=== PATIENT | female | born 1985 | race Caucasian/White ===

== ENCOUNTER 2018-05-02 09:48 | Emergency (ER) | payer OTHER ==
[~2018-05-02] VITALS: Ht 160 cm; Wt 124.7 kg
[~2018-05-02 09:48] MED LIST: ADDERALL 10 MG10 MG PO; ADDERALL 30 MG30 MG PO; CLONAZEPAM 1 MG1 M1 PO; FLEXERIL PO; HYDROCODON-ACE1 EAC7 PO; LEXAPRO20 MG PO; MAXZIDE-25 MG1 EACH PO; MICROGESTIN1 EAC1 PO; NORCO 5-325 TA1 EACH PO; ONDANSETRON HCL4 M2 PO; PROMETHAZINE/C118 ML PO; TRAMADOL 50 MG50 MG PO; WELLBUTRIN XL300 MG PO
[2018-05-02 10:19] LABS: ABSOLUTE BASOPHILS 0.2 thou/uL (0.0-0.2); ABSOLUTE EOSINOPHILS 0.2 thou/uL (0.0-0.7); ABSOLUTE LYMPHOCYTES 3.6 thou/uL (0.8-5.3); ABSOLUTE MONOCYTES 0.6 thou/uL (0.0-1.2); ABSOLUTE NEUTROPHILS 7.7 thou/uL (1.6-8.1); BASOPHILS 1.5 %; EOSINOPHILS 1.4 %; HEMATOCRIT 38.2 % (37.0-47.0); HEMOGLOBIN 12.5 gm/dL (12.0-15.0); MCH 25.6 pg (26.0-34.0); MCHC 32.6 g/dL (28.0-37.0); MCV 78.7 fL (80.0-100.0); MONOCYTES 5.2 %; MPV 7.2 fl. (7.2-11.1); NUCLEATED RBCS 0 /100WBC; PLATELET COUNT* 492 thou/uL (150-400); POLYS 62.9 %; RBC 4.86 mil/uL (4.20-5.00); RDW-CV 15.3 % (10.5-14.5); WBC 12.3 thou/uL (4.0-11.0)
[2018-05-02 10:28] LABS: ANION GAP 8 mmol/L (7-16); BUN 10 mg/dL (7-18); CALCIUM 8.5 mg/dL (8.5-10.1); CHLORIDE 101 mmol/L (98-107); CO2 28 mmol/L (21-32); CREATININE 0.4 mg/dL (0.6-1.3); GLUCOSE 102 mg/dL (70-99); POTASSIUM 3.5 mmol/L (3.5-5.1); SODIUM 137 mmol/L (136-145)
[2018-05-02 10:35] LABS: ALKALINE PHOSPHATASE 100 U/L (46-116); LIPASE 74 U/L (73-393); SGOT 37 U/L (15-37); SGPT 55 U/L (30-65); TOTAL BILIRUBIN 0.3 mg/dL (<0.1-1.0); TOTAL PROTEIN 7.4 g/dL (6.4-8.2); TROPONIN-I LEVEL <0.06 ng/mL (<0.06)
[2018-05-02] MEDS ORDERED: FLEXERIL PO (10:53)
[2018-05-02 11:00] VITALS: BP 137/90
--- NOTE | 2018-05-03 13:39 | EKG ---
[place] [address] ELECTROCARDIOGRAM REPORT Name: VLADISLAV PURVIS Hilary Room: [facility]#: [id number] Admission: 05/02/18 Attend Phys: Discharge: 05/02/18 Date of : 81 Report #: [id number] THIS REPORT FOR: //name// [facility] ED Test Date: 2018-05-02 Test Time: 09:56:06 Pat Name: VLADISLAV PURVIS Department: Room: Gender: F Detective Lieutenant: : 1985 Requested By: Herminio Rausch Order Number: [id number] MD: Kenny Scherer Measurements Intervals [place] Rate: 75 P: 40 KS: 128 QRS: 33 QRSD: 122 T: 23 QT: 405 QTc: 453 Interpretive Statements Sinus rhythm Nonspecific intraventricular conduction delay Compared to ECG 06/13/2017 12:04:01 Intraventricular conduction delay now present Sinus tachycardia no longer present Electronically Signed On 05-03-2018 13:38:51 CDT by Kenny Scherer [email or web address] <ELECTRONICALLY SIGNED> By: Kenny Scherer MD, [facility] 05/03/18 1338 5 Kenny Scherer MD, FACC /EPI
== END 2018-05-02 11:00 | disposition home or self-care (01) ==
LOC: M.ERS 09:48
PROVIDERS: Emergency Medicine Emergency Medical Services
DX: R00.2 Palpitations (principal); M79.602 Pain in left arm; F41.9 Anxiety disorder, unspecified; K21.9 Gastro-esophageal reflux disease without esophagitis; I10 Essential (primary) hypertension; F32.9 Major depressive disorder, single episode, unspecified

== ENCOUNTER 2018-10-21 08:34 | Emergency (ER) | payer OTHER ==
[~2018-10-21] VITALS: Ht 160 cm; Wt 123.4 kg
[2018-10-21] MEDS ORDERED: PROTONIX 20 MG20 M1 PO (09:01)
[2018-10-21] MEDS ORDERED: FLEXERIL PO (09:02)
[2018-10-21] MEDS ORDERED: JUNEL1 EACH PO (10:27)
[2018-10-21] MEDS ORDERED: LIDODERM1 EACH TRANSDERM (10:32)
[2018-10-21 10:37] VITALS: BP 144/86
== END 2018-10-21 10:42 | disposition home or self-care (01) ==
LOC: M.ERS 08:34
DX: S20.212A Contusion of left front wall of thorax, initial encounter (principal); F41.9 Anxiety disorder, unspecified; F31.9 Bipolar disorder, unspecified; K21.9 Gastro-esophageal reflux disease without esophagitis; I10 Essential (primary) hypertension; F98.8 Other specified behavioral and emotional disorders with onset usually occurring in childhood and adolescence; F17.210 Nicotine dependence, cigarettes, uncomplicated; X58.XXXA Exposure to other specified factors, initial encounter; Y93.89 Activity, other specified; Y92.89 Other specified places as the place of occurrence of the external cause; Y99.8 Other external cause status; Z98.890 Other specified postprocedural states